=== PATIENT | male | born 1950 | race Caucasian/White ===

== ENCOUNTER 2021-11-15 11:11 | Observation (INO) | payer MEDICARE ==
[~2021-11-15] VITALS: Ht 177.8 cm; Wt 127.5 kg
[2021-11-15 11:39] LABS: HEMOGLOBIN 8.4 gm/dl (14.0-17.5); RED BLOOD COUNT 2.85 M/UL (4.20-5.50); WHITE BLOOD COUNT 7.7 K/UL (4.5-11.0)
[2021-11-16 03:32] LABS: HEMOGLOBIN 7.8 gm/dl (14.0-17.5); RED BLOOD COUNT 2.68 M/UL (4.20-5.50); WHITE BLOOD COUNT 9.3 K/UL (4.5-11.0)
[2021-11-16 04:09] LABS: BUN/CREATININE RATIO 7 (0-10)
[2021-11-16] MEDS ORDERED: JANTOVEN3 MG PO (12:55)
[2021-11-16] MEDS ORDERED: AMLODIPINE BESY10 MG PO (12:55)
[2021-11-16] MEDS ORDERED: ATORVASTATIN CA40 MG PO (12:56)
[2021-11-16] MEDS ORDERED: WARFARIN SODIUM5 MG PO (12:56)
[2021-11-16] MEDS ORDERED: WARFARIN SODIUM4 MG PO (12:56)
[2021-11-16] MEDS ORDERED: DRISDOL1250 MCG PO (12:57)
[2021-11-16] MEDS ORDERED: BUSPIRONE HCL5 MG PO (12:57)
[2021-11-16] MEDS ORDERED: DOCUSATE SODIU100 MG PO (12:57)
[2021-11-16] MEDS ORDERED: METOPROLOL SUCC50 MG PO (12:58)
[2021-11-16] MEDS ORDERED: TRADJENTA5 MG PO (12:58)
[2021-11-16] MEDS ORDERED: LORATADINE10 MG PO (12:58)
[2021-11-16] MEDS ORDERED: ZOLOFT50 MG PO (12:59)
[2021-11-16] MEDS ORDERED: PROTONIX40 MG PO (12:59)
[2021-11-16 15:48] LABS: HEMOGLOBIN 7.7 gm/dl (14.0-17.5); RED BLOOD COUNT 2.58 M/UL (4.20-5.50); WHITE BLOOD COUNT 7.7 K/UL (4.5-11.0)
[2021-11-17 10:44] LABS: HEMOGLOBIN 7.7 gm/dl (14.0-17.5); RED BLOOD COUNT 2.59 M/UL (4.20-5.50)
== END 2021-11-17 16:33 | disposition home or self-care (01) ==
LOC: ER1 11:11 → PROG CARE 18:14 → EDBD 18:14 → CDU 18:14 → PROG CARE 21:10
PROVIDERS: Emergency Medicine; Internal Medicine; Physician Assistant Medical; ADMIT Internal Medicine
DX: T82.838A Hemorrhage due to vascular prosthetic devices, implants and grafts, initial encounter (principal); D68.9 Coagulation defect, unspecified; D62 Acute posthemorrhagic anemia; I48.20 Chronic atrial fibrillation, unspecified; I12.0 Hypertensive chronic kidney disease with stage 5 chronic kidney disease or end stage renal disease; E11.22 Type 2 diabetes mellitus with diabetic chronic kidney disease; N18.6 End stage renal disease; E78.5 Hyperlipidemia, unspecified; E66.9 Obesity, unspecified; Z68.41 Body mass index [BMI] 40.0-44.9, adult; Z20.822 Contact with and (suspected) exposure to COVID-19; Z99.2 Dependence on renal dialysis; Z79.01 Long term (current) use of anticoagulants; Z79.84 Long term (current) use of oral hypoglycemic drugs; Z79.899 Other long term (current) drug therapy; Z88.0 Allergy status to penicillin; Y83.2 Surgical operation with anastomosis, bypass or graft as the cause of abnormal reaction of the patient, or of later complication, without mention of misadventure at the time of the procedure
CPT/HCPCS: ECHO; 36415; 71045; 80048; 80053; 82550; 82553; 82962; 83735; 83880; 84100; 84484; 85025; 85027; 85610; 85730; 90935; 93005; 93306; 96374; 96375; 96376; 99284; G0378; J3430; U0002